=== PATIENT | male | born 1960 | race Caucasian/White ===

== ENCOUNTER → 2018-06-23 | Outpatient (CLI) | payer BC ==
[~2018-06-23] MED LIST: AMLO5TAB3 PO; LISI40TA PO; SIMV20TA2 PO
--- NOTE | 2018-06-23 12:02 | DIAGNOSTIC IMAGING REPORT ---
R FINGER(S) MIN 2 VIEWS ROUTINE CLINICAL HISTORY: Bilateral thumb pain. COMPARISON: None FINDINGS: Alignment of the right thumb is anatomic. No fracture or osseous lesion is present. There is minimal osteophytosis of the interphalangeal joint. No erosions are identified. There is minimal osteophytosis the right first carpometacarpal joint. IMPRESSION: 1. No acute fracture or dislocation within the right thumb. 2. Minimal osteoarthritis within several articulations. Electronically signed by: Herb Key M.D. 06/23/2018 12:01 PM Dictated Date/Time: 06/23/2018 12:00 PM
--- NOTE | 2018-06-23 12:03 | DIAGNOSTIC IMAGING REPORT ---
L FINGER(S) MIN 2 VIEWS ROUTINE CLINICAL HISTORY: Bilateral thumb pain. COMPARISON: None FINDINGS: Alignment of the left thumb is anatomic. No fracture or osseous lesion is present. There is minimal osteophytosis of the left first carpometacarpal joint and interphalangeal joint. IMPRESSION: 1. No acute fracture or dislocation within the left thumb. 2. Minimal osteoarthritis within several articulations. Electronically signed by: Herb Key M.D. 06/23/2018 12:01 PM Dictated Date/Time: 06/23/2018 12:01 PM
== END | disposition home or self-care (01) ==
LOC: C.RAD1850 10:12
PROVIDERS: ATTEND Family Medicine
DX: M79.644 Pain in right finger(s) (principal)